=== PATIENT | male | born 1995 | race Caucasian/White ===

== ENCOUNTER 2020-04-04 20:26 | Emergency (ER) | payer BC ==
[2020-04-04] MEDS ORDERED: Alum Hydrox/Mag Hydrox/Simeth 15 ML, Lidocaine 2% 15 ML PO ONE ×2 (20:39)
[2020-04-04] MEDS ORDERED: Aluminum Hydroxide/Magnesium Hydroxide/Simethicone Susp 30 ML Cup ONE (20:42)
[2020-04-04] MEDS ORDERED: Lidocaine 2% Viscous Solution 15 ML Cup ONE (20:42)
[2020-04-04 20:53] VITALS: BP 141/83; PULSE 78
--- NOTE | 2020-04-04 20:57 | EDM.PDOC ---
ED HPI GENERAL MEDICAL PROBLEM - General Chief Complaint: Gastrointestinal Problem Stated Complaint: CHEST/BACK PAIN Time Seen by Provider: 04/04/20 20:39 Source of Information: Reports: Patient History Limitations: Reports: No Limitations - History of Present Illness INITIAL COMMENTS - FREE TEXT/NARRATIVE: Sergio is a 24-year-old male presenting to the ED for evaluation of acute onset of epigastric pain started around 1700 hrs. tonight. Patient ate some smoked salmon prior to the onset of the symptoms. He then went to a birthday green party and was not feeling well and then came in for evaluation. He reports having a normal bowel movement today. He has had normal appetite. The pain has been epigastric radiating up into the chest. Is not associated with any shortness of breath or cough. The patient has some mild nausea. Patient denies having symptoms like this before. The patient is a smoker and has a family history for diabetes in his grandmother. The patient is also obese but has no significant medical history is for hypertension, diabetes, or hyperlipidemia. Upon arrival to the ED, the patient was given a GI cocktail with some improvement in his symptoms. - Related Data Allergies Allergy/AdvReac Type Severity Reaction Status Date / Time No Known Allergies Allergy Verified 04/04/20 20:46 Home Meds: Home Meds NK [No Known Home Meds] 01/31/16 [History] Past Medical History - Past Surgical History HEENT Surgical History: Reports: Tonsillectomy GI Surgical History: Reports: Appendectomy Social & Family History - Tobacco Use Tobacco Use Status *Q: Current Every Day Tobacco User Years of Tobacco use: 7 Packs/Tins Daily: 1 ED ROS GENERAL - Review of Systems Review Of Systems: See Below Constitutional: Reports: No Symptoms HEENT: Reports: No Symptoms Respiratory: Reports: No Symptoms Cardiovascular: Reports: Chest Pain Endocrine: Reports: No Symptoms GI/Abdominal: Reports: Abdominal Pain (Epigastric), Nausea (Mild). Denies: Bloody Stool, Constipation, Diarrhea, Decreased Appetite, Vomiting : Reports: No Symptoms Musculoskeletal: Reports: No Symptoms Skin: Reports: No Symptoms Neurological: Reports: No Symptoms Psychiatric: Reports: No Symptoms Hematologic/Lymphatic: Reports: No Symptoms Immunologic: Reports: No Symptoms ED EXAM, GI/ABD - Physical Exam Exam: See Below Exam Limited By: No Limitations General Appearance: Alert, WD/WN, No Apparent Distress, Obese Eyes: Bilateral: EOMI Nose: Normal Inspection, Normal Mucosa, No Blood Throat/Mouth: Normal Inspection, Normal Lips, Normal Teeth, Normal Gums, Normal Oropharynx, Normal Voice, No Airway Compromise Head: Atraumatic, Normocephalic Neck: Normal Inspection, Supple, Non-Tender, Full Range of Motion Respiratory/Chest: No Respiratory Distress, Lungs Clear, Normal Breath Sounds, No Accessory Muscle Use, Chest Non-Tender Cardiovascular: Normal Peripheral Pulses, Regular Rate, Rhythm, No Edema, No Gallop, No JVD, No Murmur, No Rub GI/Abdominal Exam: Normal Bowel Sounds, Soft, No Organomegaly, No Distention, No Abnormal Bruit, No Mass, Tender (Mild epigastric tenderness). No: Distended, Guarding, Rebound Back Exam: Normal Inspection, Full Range of Motion, NT Extremities: Normal Inspection, Normal Range of Motion, Non-Tender, Normal Capillary Refill, No Pedal Edema Neurological: Alert, Oriented, CN II-XII Intact, Normal Cognition, Normal Gait, Normal Reflexes, No Motor/Sensory Deficits Psychiatric: Normal Affect, Normal Mood Skin Exam: Warm, Dry, Intact, Normal Color, No Rash Lymphatic: No Adenopathy Course - Vital Signs Last Recorded V/S: Last Vital Signs Temp 36.3 C 04/04/20 20:52 Pulse 78 04/04/20 20:52 Resp 14 04/04/20 20:52 BP 141/83 H 04/04/20 20:52 Pulse Ox 98 04/04/20 20:52 - Orders/Labs/Meds Orders: Active Orders 24 hr Category Date Time Status EKG Documentation Completion [RC] ASDIRECTED Care 04/04/20 20:58 Active EKG 12 Lead [EK] Routine Ther 04/04/20 20:57 Ordered Labs: Laboratory Tests 04/04/20 04/04/20 Range/Units 21:08 21:08 WBC 12.6 H (4.5-11.0) K/uL RBC 5.05 (4.30-5.90) M/uL Hgb 15.1 H (12.0-15.0) g/dL Hct 45.7 (40.0-54.0) % MCV 91 (80-98) fL MCH 30 (27-31) pg MCHC 33 (32-36) % Plt Count 228 (150-400) K/uL Neut % (Auto) 64 (36-66) % Lymph % (Auto) 26 (24-44) % [place] % (Auto) 7 H (2-6) % Eos % (Auto) 3 (2-4) % Baso % (Auto) 1 (0-1) % Sodium 137 L (140-148) mmol/L Potassium 4.4 (3.6-5.2) mmol/L Chloride 102 (100-108) mmol/L Carbon Dioxide 27 (21-32) mmol/L Anion Gap 12.4 (5.0-14.0) mmol/L BUN 18 D (7-18) mg/dL Creatinine 1.1 D (0.8-1.3) mg/dL Est Cr Clr Drug Dosing 113.66 mL/min Estimated GFR (MDRD) > 60 (>60) Glucose 108 H (74-106) mg/dL Calcium 8.8 (8.5-10.1) mg/dL Total Bilirubin 0.3 (0.2-1.0) mg/dL AST 19 (15-37) U/L ALT 40 (12-78) U/L Alkaline Phosphatase 63 (46-116) U/L Troponin I < 0.017 (0.000-0.056) ng/mL C-Reactive Protein 0.61 H (0.0-0.3) mg/dL Total Protein 7.1 (6.4-8.2) g/dL Albumin 3.6 (3.4-5.0) g/dL Globulin 3.5 (2.3-3.5) g/dL Albumin/Globulin Ratio 1.0 L (1.2-2.2) Meds: Medications Discontinued Medications Generic Name Dose Route Start Last Admin Trade Name Freq PRN Reason Stop Dose Admin Al Hydroxide/Mg Hydroxide Confirm 04/04/20 20:42 Mag-Al Plus Administered 04/04/20 20:43 Dose 30 ml .ROUTE .STK-MED ONE Al Hydroxide/Mg Hydroxide 15 0 ml 04/04/20 20:39 04/04/20 20:53 ml/ Lidocaine HCl 15 ml PO 04/04/20 20:40 30 ml ONETIME ONE Administration Lidocaine HCl Confirm 04/04/20 20:42 Xylocaine 2% Viscous Administered 04/04/20 20:43 Dose 15 ml .ROUTE .STK-MED ONE Departure - Departure Time of Disposition: 22:10 Disposition: Home, Self-Care 01 Condition: Good Clinical Impression: GERD with esophagitis Qualifiers: Esophagitis bleeding: without hemorrhage Qualified Code(s): K21.00 - Gastro- esophageal reflux disease with esophagitis, without bleeding - Discharge Information *PRESCRIPTION DRUG MONITORING PROGRAM REVIEWED*: Not Applicable *COPY OF PRESCRIPTION DRUG MONITORING REPORT IN PATIENT [place]: Not Applicable Instructions: Heartburn, [id number], Abdominal Pain, Adult, [id number] Referrals: Jose Eduardo Garcia MD [Primary Care Provider] - Forms: ED Department Discharge Care Plan Goals: The symptoms you are presenting with are likely due to gastroesophageal reflux disease causing spasm and irritation of the esophagus otherwise known as esophagitis. I would advise against any spicy foods over the next couple of days. You may want to take Prilosec or Pepcid for the increased acid production and to help heal the esophagus. You may also use Maalox to coat the esophagus. Your work-up today is otherwise been unremarkable including EKG and labs. In addition I would encourage you to quit smoking. At this time, I believe you are suitable for discharge home without any worrisome findings in your work-up. Sepsis Event Note (ED) - Focused Exam Vital Signs: Vital Signs Temp Pulse Resp BP Pulse Ox 04/04/20 20:52 36.3 C 78 14 141/83 H 98 - Problem List & Annotations (1) GERD with esophagitis SNOMED Code(s): 703759288 Code(s): K21.00 - GASTRO-ESOPHAGEAL REFLUX DIS WITH ESOPHAGITIS, WITHOUT B LEED Status: Acute Priority: High Current Visit: Yes Qualifiers: Esophagitis bleeding: without hemorrhage Qualified Code(s): K21.00 - Gastro-esophageal reflux disease with esophagitis, without bleeding - Problem List Review Problem List Initiated/Reviewed/Updated: Yes - My Orders Last 24 Hours: My Active Orders 04/04/20 20:57 EKG 12 Lead [EK] Routine 04/04/20 20:58 EKG Documentation Completion [RC] ASDIRECTED - Assessment/Plan Last 24 Hours: My Active Orders 04/04/20 20:57 EKG 12 Lead [EK] Routine 04/04/20 20:58 EKG Documentation Completion [RC] ASDIRECTED
== END 2020-04-04 22:34 | disposition home or self-care (01) ==
LOC: JP.ED 20:26
DX: K21.00 Gastro-esophageal reflux disease with esophagitis, without bleeding (principal); F17.210 Nicotine dependence, cigarettes, uncomplicated; E66.9 Obesity, unspecified; Z68.42 Body mass index [BMI] 45.0-49.9, adult; Z90.49 Acquired absence of other specified parts of digestive tract
CPT/HCPCS: 36415; 80053; 84484; 85025; 86140; 93005; 99284; A9270; 99282